=== PATIENT | male | born 1995 | race African-American/Black ===

== ENCOUNTER 2020-01-18 14:38 | Emergency (ER) | payer BC ==
[~2020-01-18] VITALS: Ht 182.9 cm; Wt 88.5 kg
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
[2020-01-18 14:45] VITALS: BP 100/57
[2020-01-18] MEDS ORDERED: ROBAXIN-500MG ORAL (15:11)
[2020-01-18] MEDS ORDERED: NAPROXEN500 M1 ORAL (15:11)
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
[2020-01-18] MEDS ORDERED: Naproxen 500mg tab ORAL ONE (17:00)
[2020-01-18] MEDS ORDERED: Methocarbamol 750mg tab ORAL ONE (17:00)
--- NOTE | 2020-01-18 17:06 | Diagnostic Imaging Report ---
INDICATION: Back pain TECHNIQUE: Multiple views of the lumbosacral spine were obtained COMPARISON: None FINDINGS: Alignment is anatomic. There is straightening of the normal lumbar lordosis, which may be due to patient positioning or muscle spasm. There are 5 lumbar type vertebral bodies. No acute fracture or spondylolisthesis. Vertebral body heights and discs are maintained. No acute soft tissue abnormality. IMPRESSION: No acute fracture or malalignment.
[2020-01-18 17:08] VITALS: BP 100/57
== END 2020-01-18 17:10 | disposition home or self-care (01) ==
LOC: EDBD 14:38 → EMR 15:14
DX: M54.5 Low back pain (principal); M62.838 Other muscle spasm; M25.551 Pain in right hip; V43.62XA Car passenger injured in collision with other type car in traffic accident, initial encounter; Y92.410 Unspecified street and highway as the place of occurrence of the external cause
CPT/HCPCS: 72020; 73521; 99284